=== PATIENT | male | born 1975 | race American Indian/Alaskan Native ===

== ENCOUNTER 2017-03-10 20:56 | Emergency (ER) | payer MEDICAID ==
[2017-03-10 20:57] VITALS: BMI 27.8
[2017-03-10 21:48] VITALS: TEMP 100; O2SAT 100
--- NOTE | 2017-03-10 22:31 | C.PDOC ---
History Of Present Illness 41 y/o male presents to ED with c/o pain to bilateral hands. Patient states he has been using his hands to wheel himself in his wheelchair without gloves for the last few days. Notes he took his usual dose of Percocet at home with no relief. Denies trauma, new weakness, new numbness, or other associated symptoms. Time Seen by Provider: 03/10/17 22:07 Chief Complaint (Nursing): Finger,Hand,&Wrist History Per: Patient History/Exam Limitations: no limitations Onset/Duration Of Symptoms: Days Current Symptoms Are (Timing): Still Present Recent travel outside of the [place]: No Past Medical History Reviewed: Historical Data, Nursing Documentation, Vital Signs Vital Signs: Last Vital Signs Temp 100 F H 03/10/17 21:43 Pulse 78 03/10/17 22:35 Resp 16 03/10/17 22:35 BP 101/58 L 03/10/17 22:35 Pulse Ox 100 03/10/17 22:31 - Medical History PMH: Chronic Kidney Disease Family History: States: Unknown Family Hx - Social History Hx Alcohol Use: No Hx Substance Use: No - Immunization History Hx Tetanus Toxoid Vaccination: Yes Hx Influenza Vaccination: Yes Hx Pneumococcal Vaccination: No Review Of Systems Except As Marked, All Systems Reviewed And Found Negative. Constitutional: Negative for: Fever, Chills Musculoskeletal: Positive for: Hand Pain (bilateral) Skin: Negative for: Rash Neurological: Negative for: Weakness, Numbness Physical Exam - Physical Exam Appears: Non-toxic, No Acute Distress Skin: Normal Color, Warm, Dry Head: Atraumatic, Normacephalic Extremity: Normal ROM, Capillary Refill (< 2 sec. ), No Deformity, Other ( Calluses to phalanges of bilateral hands, no gross swelling, fluctuance, or warmth. Strength and sensation intact. ) Extremity: Bilateral: Normal Color And Temperature Pulses: Left Radial: Normal, Right Radial: Normal Neurological/Psych: Oriented x3, Normal Motor, Normal Sensation ED Course And Treatment O2 Sat by Pulse Oximetry: 100 (RA) Pulse Ox Interpretation: Normal Progress Note: On reassessment, patient is resting comfortably, and is in no acute distress. Patient instructed to follow up with clinic/PMD within 1-2 days. Disposition - Disposition Referrals: Nina Morgan MD [Primary Care Provider] - Disposition: HOME/ ROUTINE Disposition Time: 22:29 Condition: GOOD Additional Instructions: Please follow up with your doctor Continue current pain meds Return to ER if worse Forms: General Discharge Instructions - Clinical Impression Clinical Impression: Bilateral hand pain, Callus - PA / AGRICULTURAL TECHNICAL OFFICER / Resident Statement MD/DO has reviewed & agrees with the documentation as recorded. - Scribe Statement The provider has reviewed the documentation as recorded by the Adibe Jorge Luis Nogueira Provider Scribe Attestation: All medical record entries made by the Gavin were at my direction and personally dictated by me. I have reviewed the chart and agree that the record accurately reflects my personal performance of the history, physical exam, medical decision making, and the department course for this patient. I have also personally directed, reviewed, and agree with the discharge instructions and disposition.
[2017-03-10 22:35] VITALS: BP 101/58; PULSE 78; RESP 16
== END 2017-03-10 22:38 | disposition home or self-care (01) ==
LOC: C.ER 20:56 → SUPCPDRO 20:56 → C.ER 22:38
DX: L84 Corns and callosities (principal); M79.642 Pain in left hand; M79.641 Pain in right hand

== ENCOUNTER 2017-03-15 19:48 | Emergency (ER) | payer MEDICAID ==
[2017-03-15 19:49] VITALS: BMI 27.8
[2017-03-15 20:43] VITALS: BP 95/51; PULSE 85; RESP 14; TEMP 98; O2SAT 99
[2017-03-15] MEDS ORDERED: Dexamethasone 4 mg/1 ml IM STA (21:17)
[2017-03-15] MEDS ORDERED: Dexamethasone 4 mg/1 ml ONE (21:19)
--- NOTE | 2017-03-15 21:30 | C.PDOC ---
History Of Present Illness 41 year old male presents to the ED with complaints of bilateral hand pain and intermittent swelling for the past 2 weeks. Patient states he was seen in the ED for the same complaints last week and was advised pain medication for the inflammation however the symptoms persist and are exacerbated when he pushes his wheelchair. Denies trauma, fever, weakness, numbness, or any other complaints at this time. Time Seen by Provider: 03/15/17 20:41 Chief Complaint (Nursing): Finger,Hand,&Wrist History Per: Patient History/Exam Limitations: no limitations Onset/Duration Of Symptoms: Days Current Symptoms Are (Timing): Still Present Severity: Mild Past Medical History Reviewed: Historical Data, Nursing Documentation, Vital Signs Vital Signs: Last Vital Signs Temp 98 F 03/15/17 20:25 Pulse 85 03/15/17 20:25 Resp 14 03/15/17 20:25 BP 95/51 L 03/15/17 20:25 Pulse Ox 99 03/15/17 21:50 - Medical History PMH: End Stage Renal Disease, Chronic Kidney Disease Family History: States: Unknown Family Hx - Social History Hx Alcohol Use: No Hx Substance Use: No - Immunization History Hx Tetanus Toxoid Vaccination: Yes Hx Influenza Vaccination: Yes Hx Pneumococcal Vaccination: No Review Of Systems Except As Marked, All Systems Reviewed And Found Negative. Constitutional: Negative for: Fever, Chills Musculoskeletal: Positive for: Hand Pain (+Bilateral hand pain). Negative for: Back Pain Skin: Negative for: Rash Neurological: Negative for: Weakness, Numbness Physical Exam - Physical Exam Appears: Non-toxic, No Acute Distress Skin: Normal Color, Warm, Dry Head: Atraumatic, Normacephalic Eye(s): bilateral: Normal Inspection Extremity: Normal ROM, No Tenderness, Capillary Refill (< 2 seconds), No Deformity, No Swelling, Other (+"puffiness" to thumbs and 2nd fingers bilaterally. +Multiple calluses to bilateral hands. No warmth, erythema, or fluctuance.) Pulses: Left Radial: Normal, Right Radial: Normal Neurological/Psych: Oriented x3, Normal Speech, Normal Cognition, Normal Motor, Normal Sensation ED Course And Treatment O2 Sat by Pulse Oximetry: 99 (Room air) Pulse Ox Interpretation: Normal Progress Note: Patent treated with Decadron IM and advised to continue using Percocet for pain and follow up with his PMD. Disposition Counseled Patient/Family Regarding: Diagnosis, Need For Followup, Rx Given - Disposition Referrals: [facility] [Outside] Disposition: HOME/ ROUTINE Disposition Time: 21:27 Condition: STABLE Additional Instructions: PLEASE APPLY WARM COMPRESS TO HANDS KEEP ELEVATED POSSIBLE CONTINUE PERCOCET FOR PAIN RETURN TO ER IF WORSE Prescriptions: predniSONE [Prednisone] 20 mg PO DAILY #7 tab Instructions: Arthralgia (ED) - Clinical Impression Clinical Impression: Bilateral hand pain, Callus, Arthralgia - PA / MEDICAL SUPPLY TECHNICIAN / Resident Statement MD/DO has reviewed & agrees with the documentation as recorded. - Scribe Statement The provider has reviewed the documentation as recorded by the Scribe Bro Bobo. All medical record entries made by the Scribe were at my direction and personally dictated by me. I have reviewed the chart and agree that the record accurately reflects my personal performance of the history, physical exam, medical decision making, and the department course for this patient. I have also personally directed, reviewed, and agree with the discharge instructions and disposition.
== END 2017-03-15 21:30 | disposition home or self-care (01) ==
LOC: C.ER 19:48
DX: L84 Corns and callosities (principal); M25.542 Pain in joints of left hand; M25.541 Pain in joints of right hand
CPT/HCPCS: 96372; 99283; J1100